=== PATIENT | male | born 2000 | race Caucasian/White ===

== ENCOUNTER 2019-05-05 01:14 | Emergency (ER) | payer SELFPAY ==
[~2019-05-05] VITALS: Ht 180.3 cm; Wt 81.8 kg
[2019-05-05 01:29] VITALS: TEMP 97.7
[2019-05-05 02:09] LABS: BASO # 0.1 (0.0-0.2); BASO % 0.4 % (0.0-2.0); EOS # 0.1 (0.0-0.7); EOS % 0.8 % (0-4.0); GRAN # 10.9 (1.4-6.5); GRAN % 78.7 % (42.2-75.2); HEMATOCRIT 43.7 % (42.0-52.0); HEMOGLOBIN 14.8 g/dl (13.5-18.0); LYMPH # 2.2 (1.2-3.4); LYMPH % 16.1 % (20.0-51.0); MEAN CELL VOLUME 83 fl (80.0-100.0); MEAN CORPUSCULAR HEMOGLOBIN 28 pg (27.0-31.0); MEAN CORPUSCULAR HGB CONC 34 g/dl (33.0-37.0); MEAN PLATELET VOLUME 10.3 fl (7.4-10.4); MONO # 0.5 (0.1-0.6); MONO % 3.7 % (1.7-9.3); PLATELET COUNT 218 K/mm3 (130-400); RED BLOOD COUNT 5.26 M/mm3 (4.20-5.60); REDCELL DISTRIBUTION WIDTH-CV 13.3 % (11.5-14.5)
[2019-05-05 02:17] LABS: POTASSIUM 4.1 mmol/L (3.4-5.0)
[2019-05-05 02:18] LABS: ALBUMIN 4.9 gm/dL (3.5-5.0); BILIRUBIN,TOTAL 0.5 mg/dL (0.0-1.0); CALCIUM 9.7 mg/dL (8.4-10.2); CREATININE, serum 0.89 (0.66-1.25); TOTAL PROTEIN 8.3 gm/dL (6.4-8.2)
[2019-05-05] MEDS ORDERED: ZOFRAN ODT4 MG PO (03:26)
[2019-05-05 03:41] VITALS: BP 12/68; PULSE 63
== END 2019-05-05 03:45 | disposition home or self-care (01) ==
LOC: COL.ER 01:14
PROVIDERS: Nurse Practitioner
DX: R11.2 Nausea with vomiting, unspecified (principal)
CPT/HCPCS: J2405; J2550; J7030

== ENCOUNTER 2020-07-18 18:25 | Emergency (ER) | payer SELFPAY ==
[~2020-07-18] VITALS: Ht 180.3 cm; Wt 81.8 kg
[~2020-07-18 18:25] MED LIST: ZOFRAN ODT4 MG PO
[2020-07-18 18:37] VITALS: TEMP 96.9
[2020-07-18 19:15] LABS: BASO % 0.3 % (0.0-2.0); EOS # 0.2 (0.0-0.7); EOS % 1.4 % (0-4.0); GRAN % 78.8 % (42.2-75.2); HEMATOCRIT 44.9 % (42.0-52.0); LYMPH # 1.7 (1.2-3.4); LYMPH % 15.1 % (20.0-51.0); MEAN CELL VOLUME 84 fl (80.0-100.0); MEAN CORPUSCULAR HEMOGLOBIN 28 pg (27.0-31.0); MEAN CORPUSCULAR HGB CONC 33 g/dl (33.0-37.0); MONO # 0.5 (0.1-0.6); PLATELET COUNT 265 K/mm3 (130-400); RED BLOOD COUNT 5.34 M/mm3 (4.20-5.60); REDCELL DISTRIBUTION WIDTH-CV 12.9 % (11.5-14.5)
[2020-07-18 19:24] LABS: ALBUMIN 4.6 gm/dL (3.5-5.0); BILIRUBIN,TOTAL 0.7 mg/dL (0.0-1.0); CALCIUM 9.5 mg/dL (8.4-10.2); CREATININE, serum 0.98 (0.66-1.25); POTASSIUM 4.1 mmol/L (3.4-5.0); TOTAL PROTEIN 8.1 gm/dL (6.4-8.2)
[2020-07-18] MEDS ORDERED: ZOFRAN 4MG T4 MG/TAB PO (19:36)
[2020-07-18 19:49] VITALS: BP 136/70; PULSE 80
== END 2020-07-18 19:49 | disposition home or self-care (01) ==
LOC: COL.ER 18:25
PROVIDERS: Nurse Practitioner
DX: U07.1 COVID-19 (principal)